=== PATIENT | male | born 1950 | race African-American/Black ===

== ENCOUNTER 2022-01-26 17:00 | Inpatient (IN) | payer MEDICARE ==
[~2022-01-26] VITALS: Ht 180.3 cm; Wt 76.7 kg
[2022-01-26] MEDS ORDERED: IOHEXOL-350 100 ML BOTTLE ONE (18:00)
[2022-01-26 18:03] LABS: BASOPHILS % 0.6 % (0.0-2.0); EOSINOPHILS % 1.7 % (0.0-5.0); HEMATOCRIT. 39.6 % (42.0-52.0); HEMOGLOBIN. 12.6 g/dL (14.0-18.0); MEAN CORPUSCULAR HEMOGLOBIN 21.5 pg (28.0-32.0); MEAN CORPUSCULAR VOLUME 67.5 fL (80.0-94.0); MEAN PLATELET VOLUME 7.8 fl (7.4-10.4); MONOCYTES % 9.8 % (2.0-8.0); NEUTROPHILS % 72.9 % (40.0-76.0); PLATELET 196 x1000/uL (130-400); RED BLOOD CELL COUNT 5.87 mill/uL (4.7-6.1); RED CELL DISTRIBUTION WIDTH 15.3 % (11.6-14.6)
[2022-01-26 18:10] LABS: CHLORIDE 104 mEq/L (98-107)
[2022-01-26 18:14] LABS: ETHANOL BLOOD < 10 mg/dL
[2022-01-26 18:26] LABS: PLATELET ESTIMATE NORMAL
[2022-01-26] MEDS ORDERED: ASPIRIN 325MG EC TABLET PO ONE (18:45)
[2022-01-26] MEDS ORDERED: VALACYCLOVIR HCL 500MG TABLET PO SCH (18:45)
[2022-01-26] MEDS ORDERED: PREDNISONE 20MG TABLET PO ONE (18:45)
[2022-01-26 19:00] LABS: CLARITY URINE CLEAR (CLEAR); COLOR URINE YELLOW (YELLOW); KETONES URINE NEGATIVE (NEGATIVE); LEUKOCYTE ESTERASE URINE NEGATIVE (NEGATIVE); NITRITE URINE NEGATIVE (NEGATIVE); OCCULT BLOOD URINE NEGATIVE (NEGATIVE); PH URINE 7.5 (4.5-8.0); PROTEIN URINE NEGATIVE (NEGATIVE); SPECIFIC GRAVITY URINE 1.021 (1.005-1.030); UROBILINOGEN URINE 0.2 E.U./dL (0.2-1.0)
[2022-01-26 19:16] LABS: *AMPHETAMINES SCREEN URINE NEGATIVE (NEGATIVE); *BARBITURATES SCREEN URINE NEGATIVE (NEGATIVE); *BENZODIAZEPINES SCREEN URINE NEGATIVE (NEGATIVE); CANNABINOID URINE SCREEN NEGATIVE (NEGATIVE); METHADONE URINE SCREEN NEGATIVE (NEGATIVE); OPIATES URINE SCREEN NEGATIVE (NEGATIVE); PHENCYCLIDINE URINE SCREEN NEGATIVE (NEGATIVE)
[2022-01-26 19:17] LABS: *COCAINE SCREEN URINE NEGATIVE (NEGATIVE)
[2022-01-27] MEDS ORDERED: TRAMADOL 50MG TABLET PO PRN (02:45)
[2022-01-27] MEDS ORDERED: NALOXONE HCL 0.4 MG/ML 1ML VIAL IV PRN (02:45)
[2022-01-27] MEDS ORDERED: DOCUSATE SODIUM 100MG CAPSULE PO PRN (03:45)
[2022-01-27] MEDS ORDERED: ONDANSETRON HCL 4MG/2ML INJ IV PRN (03:45)
[2022-01-27] MEDS: AMLODIPINE 10MG TABLET PO SCH ×2 (03:45→13:11)
[2022-01-27] MEDS ORDERED: CLONIDINE 0.1MG TABLET PO PRN (03:45)
[2022-01-27] MEDS ORDERED: ACETAMINOPHEN 325MG TABLET PO PRN (03:45)
[2022-01-27 11:00] VITALS: BP_SYST 145; BP_DIAS 77; BP_DIAS 79
[2022-01-27] MEDS: ASPIRIN 81MG EC TABLET PO SCH (13:02)
[2022-01-27] MEDS: LOSARTAN POTASSIUM 50 MG TABLET PO SCH (13:12)
[2022-01-27] MEDS: HYDROCODONE/ACETAMINOPHEN 5/325MG TABLET PO PRN ×2 (13:12→17:13)
[2022-01-27] MEDS: SODIUM CHLORIDE 0.45% 1,000 ML IV SCH (15:09)
[2022-01-27 16:00] VITALS: BP 153/77
[2022-01-27] MEDS ORDERED: GADOTERATE MEGLUMINE 5 MMOL/10 ML VIAL IV ONE (16:02)
[2022-01-27] MEDS ORDERED: LOSA50TA41 MT (18:17)
[2022-01-27] MEDS ORDERED: SIMV-43 MT (18:17)
[2022-01-27] MEDS ORDERED: AMLO2.5T45 MT (18:17)
[2022-01-27] MEDS ORDERED: MAGN400C MT (18:19)
[2022-01-27] MEDS ORDERED: PANT40TA51 MT (18:19)
[2022-01-27] MEDS ORDERED: RIBO400T MT (18:19)
[2022-01-27] MEDS ORDERED: MILK175C5 PO (18:19)
[2022-01-27] MEDS ORDERED: CHOL400D2 PO (18:19)
[2022-01-27] MEDS ORDERED: MELA3TAB40 MT (18:19)
[2022-01-27 20:00] VITALS: BP 132/70
[2022-01-27] MEDS ORDERED: ATORVASTATIN CALCIUM 20MG TABLET PO SCH (21:00)
[2022-01-27] MEDS ORDERED: ZOLPIDEM TARTRATE 5MG TABLET PO PRN (21:30)
[2022-01-28] VITALS: BP 113/65
[2022-01-28 04:00] VITALS: BP 136/84
[2022-01-28] MEDS: SODIUM CHLORIDE 0.45% 1,000 ML IV SCH (05:51)
[2022-01-28 07:41] LABS: BASOPHILS % 0.6 % (0.0-2.0); EOSINOPHILS % 2.8 % (0.0-5.0); HEMATOCRIT. 39.9 % (42.0-52.0); HEMOGLOBIN. 12.9 g/dL (14.0-18.0); LYMPHOCYTES % 27.4 % (20.0-50.0); MEAN CORPUSCULAR HEMOGLOBIN 22.1 pg (28.0-32.0); MEAN CORPUSCULAR VOLUME 68.4 fL (80.0-94.0); MEAN PLATELET VOLUME 8.6 fl (7.4-10.4); MONOCYTES % 11.1 % (2.0-8.0); NEUTROPHILS % 58.1 % (40.0-76.0); PLATELET 203 x1000/uL (130-400); RED BLOOD CELL COUNT 5.84 mill/uL (4.7-6.1); RED CELL DISTRIBUTION WIDTH 15.6 % (11.6-14.6)
[2022-01-28 07:48] LABS: CHLORIDE 106 mEq/L (98-107)
[2022-01-28 08:00] VITALS: BP 119/59
[2022-01-28 08:06] LABS: LDL CHOLESTEROL 70 mg/dL (5-100)
[2022-01-28 08:08] LABS: HDL CHOLESTEROL 46 mg/dL (40-59)
[2022-01-28] MEDS: ASPIRIN 81MG EC TABLET PO SCH (09:43)
[2022-01-28] MEDS: AMLODIPINE 10MG TABLET PO SCH (09:43)
[2022-01-28] MEDS: LOSARTAN POTASSIUM 50 MG TABLET PO SCH (09:43)
[2022-01-28 13:09] VITALS: BP 119/59
== END 2022-01-28 17:08 | disposition home or self-care (01) | DRG 74 ==
LOC: ER 17:00 → MICUSO 20:04 → 6WST 01-27 11:49
PROVIDERS: ADMIT Hospitalist; ATTEND Hospitalist
DX: G51.0 Bell's palsy (principal); M48.02 Spinal stenosis, cervical region; E78.5 Hyperlipidemia, unspecified; M25.78 Osteophyte, vertebrae; I10 Essential (primary) hypertension; Z82.49 Family history of ischemic heart disease and other diseases of the circulatory system; Z85.818 Personal history of malignant neoplasm of other sites of lip, oral cavity, and pharynx; Z92.3 Personal history of irradiation
CPT/HCPCS: 36415; 70496; 70498; 70543; 70551; 71045; 72141; 80053; 80061; 80305; 80320; 81003; 82962; 83880; 84484; 85025; 93005; 99291; A9577; J7512; Q9967; G0480

== ENCOUNTER 2022-03-05 22:43 | Inpatient (IN) | payer MEDICARE ==
[~2022-03-05] VITALS: Ht 181.8 cm; Wt 78.9 kg
[~2022-03-05 22:43] MED LIST: AMLO2.5T45 MT; CHOL400D2 PO; LOSA50TA41 MT; MAGN400C MT; MELA3TAB40 MT; MILK175C5 PO; PANT40TA51 MT; RIBO400T MT; SIMV-43 MT
[2022-03-05 23:20] LABS: CHLORIDE 104 mEq/L (98-107)
[2022-03-05 23:38] LABS: BASOPHILS % 0.8 % (0.0-2.0); EOSINOPHILS % 1.1 % (0.0-5.0); HEMATOCRIT. 40.9 % (42.0-52.0); HEMOGLOBIN. 13.2 g/dL (14.0-18.0); LYMPHOCYTES % 21.8 % (20.0-50.0); MEAN CORPUSCULAR HEMOGLOBIN 21.9 pg (28.0-32.0); MEAN CORPUSCULAR VOLUME 68.1 fL (80.0-94.0); MEAN PLATELET VOLUME 8.3 fl (7.4-10.4); MONOCYTES % 11.8 % (2.0-8.0); NEUTROPHILS % 64.5 % (40.0-76.0); PLATELET 214 x1000/uL (130-400); RED BLOOD CELL COUNT 6.01 mill/uL (4.7-6.1); RED CELL DISTRIBUTION WIDTH 15.4 % (11.6-14.6)
[2022-03-05] MEDS ORDERED: POTASSIUM CHLORIDE 20MEQ TABLET SR PO NR (23:45)
[2022-03-06 00:03] LABS: PLATELET ESTIMATE NORMAL
[2022-03-06] MEDS ORDERED: ASPIRIN 325MG EC TABLET PO NR (00:15)
[2022-03-06] MEDS ORDERED: SODIUM CHLORIDE 0.9% 500 ML IV ONE (02:00)
[2022-03-06 09:00] VITALS: BP 129/69
[2022-03-06 09:30] VITALS: BP 129/69
[2022-03-06] MEDS ORDERED: DIPHENHYDRAMINE 50MG/ML VIAL IV PRN (09:30)
[2022-03-06] MEDS ORDERED: ACETAMINOPHEN 325MG TABLET PO PRN (09:30)
[2022-03-06] MEDS ORDERED: IPRATROPIUM/ALBUTEROL 0.5-3(2.5)MG/3ML NEB HHN PRN (09:30)
[2022-03-06] MEDS ORDERED: CLONIDINE 0.1MG TABLET PO PRN (09:30)
[2022-03-06] MEDS ORDERED: ONDANSETRON HCL 4MG/2ML INJ IV PRN (09:30)
[2022-03-06 12:00] VITALS: BP 135/81
[2022-03-06] MEDS: CYCLOBENZAPRINE 10MG TABLET PO SCH ×2 (13:25→21:25)
[2022-03-06 16:00] VITALS: BP 147/87
[2022-03-06 20:00] VITALS: BP 135/80
[2022-03-06] MEDS: ALPRAZOLAM 0.25 MG TABLET PO SCH (21:25)
[2022-03-07] VITALS: BP 129/83
[2022-03-07 04:00] VITALS: BP 125/72
[2022-03-07] MEDS: CYCLOBENZAPRINE 10MG TABLET PO SCH ×3 (05:56→21:29)
[2022-03-07 06:15] LABS: BASOPHILS % 0.9 % (0.0-2.0); EOSINOPHILS % 4.8 % (0.0-5.0); HEMATOCRIT. 40.3 % (42.0-52.0); HEMOGLOBIN. 12.9 g/dL (14.0-18.0); LYMPHOCYTES % 30.8 % (20.0-50.0); MEAN CORPUSCULAR VOLUME 68.9 fL (80.0-94.0); MEAN PLATELET VOLUME 8.2 fl (7.4-10.4); MONOCYTES % 12.4 % (2.0-8.0); NEUTROPHILS % 51.1 % (40.0-76.0); PLATELET 178 x1000/uL (130-400); RED BLOOD CELL COUNT 5.85 mill/uL (4.7-6.1); RED CELL DISTRIBUTION WIDTH 15.8 % (11.6-14.6)
[2022-03-07 07:56] LABS: CHLORIDE 108 mEq/L (98-107)
[2022-03-07 08:00] VITALS: BP 123/72
[2022-03-07] MEDS: ALPRAZOLAM 0.25 MG TABLET PO SCH ×2 (08:41→17:06)
[2022-03-07] MEDS: ASPIRIN 81MG EC TABLET PO SCH (08:41)
[2022-03-07 12:00] VITALS: BP 108/76
[2022-03-07] MEDS ORDERED: NON FORMULARY PATIENT HOME MED XX SCH ×2 (12:00→16:45)
[2022-03-07 16:00] VITALS: BP 130/85
[2022-03-07] MEDS ORDERED: PANTOPRAZOLE 40MG DR TABLET PO SCH (17:00)
[2022-03-07] MEDS ORDERED: MELATONIN 3MG TABLET PO PRN (17:00)
[2022-03-07 20:00] VITALS: BP 140/98
[2022-03-07] MEDS ORDERED: ATORVASTATIN CALCIUM 10MG TABLET PO SCH (21:00)
[2022-03-08] VITALS: BP 136/68
[2022-03-08 04:00] VITALS: BP 134/87
[2022-03-08] MEDS: CYCLOBENZAPRINE 10MG TABLET PO SCH ×2 (05:08→13:40)
[2022-03-08 08:00] VITALS: BP 134/79
[2022-03-08] MEDS ORDERED: FAMOTIDINE 20MG TABLET PO SCH (09:00)
[2022-03-08] MEDS: ASPIRIN 81MG EC TABLET PO SCH (09:07)
[2022-03-08] MEDS: ALPRAZOLAM 0.25 MG TABLET PO SCH (09:07)
[2022-03-08 12:00] VITALS: BP 144/87
[2022-03-08] MEDS ORDERED: ASPI-1406 PO (14:00)
[2022-03-08 14:59] VITALS: BP 138/81
== END 2022-03-08 15:30 | disposition home health service (06) | DRG 103 ==
LOC: ER 22:43 → MICUSO 03-06 01:40 → EDBEDREQTM 03-06 01:42 → EDBEDREQ 03-06 01:42 → 7WST 03-06 09:30
PROVIDERS: ADMIT Internal Medicine; ATTEND Internal Medicine
DX: G43.909 Migraine, unspecified, not intractable, without status migrainosus (principal); G45.9 Transient cerebral ischemic attack, unspecified; E87.6 Hypokalemia; I10 Essential (primary) hypertension; R25.2 Cramp and spasm; Z85.819 Personal history of malignant neoplasm of unspecified site of lip, oral cavity, and pharynx; Z82.49 Family history of ischemic heart disease and other diseases of the circulatory system; Z79.899 Other long term (current) drug therapy
CPT/HCPCS: 36415; 70551; 71045; 72141; 80053; 83880; 84484; 85025; 93005; 93970; 99285; J2405; J7030

== ENCOUNTER 2023-01-02 11:04 | Emergency (ER) | payer MEDICARE, MEDICAID ==
[~2023-01-02] VITALS: Ht 180.3 cm; Wt 75.0 kg
[~2023-01-02 11:04] MED LIST changes: +ASPI-1406 PO
[2023-01-02 11:06] VITALS: BP 117/72
[2023-01-02] MEDS ORDERED: FLUORESCEIN SODIUM 1MG/STRIP RIGHTEYE ONE (11:45)
[2023-01-02] MEDS ORDERED: TETRACAINE 0.5% OPHTH DROPS 4ML RIGHTEYE ONE (11:45)
[2023-01-02] MEDS ORDERED: OFLO5DRO3 RIGHTEYE (12:34)
== END 2023-01-02 12:52 | disposition home or self-care (01) ==
LOC: ER 11:04
DX: H10.021 Other mucopurulent conjunctivitis, right eye (principal); I10 Essential (primary) hypertension; Z85.9 Personal history of malignant neoplasm, unspecified
CPT/HCPCS: 99283

== ENCOUNTER 2023-05-13 09:37 | Emergency (ER) | payer MEDICARE, MEDICAID, OTHER ==
[~2023-05-13] VITALS: Ht 172.7 cm; Wt 80.0 kg
[~2023-05-13 09:37] MED LIST changes: +OCUFLX RIGHTEYE
[2023-05-13 09:42] VITALS: BP 104/67; PULSE 97; RESP 18; TEMP 98.6; O2SAT 100
[2023-05-13 10:38] LABS: EOSINOPHILS % 3.6 % (0.0-5.0); HEMATOCRIT. 39.4 % (42.0-52.0); HEMOGLOBIN. 12.9 g/dL (14.0-18.0); LYMPHOCYTES % 19.6 % (20.0-50.0); MEAN CORPUSCULAR HEMOGLOBIN 22.4 pg (28.0-32.0); MEAN CORPUSCULAR HGB CONC 32.9 g/dL (31.0-37.0); MEAN CORPUSCULAR VOLUME 68.1 fL (80.0-94.0); MEAN PLATELET VOLUME 7.9 fl (7.4-10.4); NEUTROPHILS % 64.8 % (40.0-76.0); PLATELET 208 x1000/uL (130-400); RED BLOOD CELL COUNT 5.78 mill/uL (4.7-6.1); RED CELL DISTRIBUTION WIDTH 15.3 % (11.6-14.6); WHITE BLOOD COUNT 4.9 x1000/uL (4.5-11.0)
[2023-05-13 10:41] LABS: ADD RBC MORPHOLOGY YES; DIFFERENTIAL COMMENT 1
[2023-05-13 10:45] LABS: CHLORIDE 100 mEq/L (98-107); INDEX HEMOLYSI 1 (1-3); INDEX ICTERIC 1 (1-4); INDEX LIPEMIC 1 (1-3); POTASSIUM 2.9 mEq/L (3.5-5.1); SODIUM 137 mEq/L (136-145)
[2023-05-13 10:53] LABS: ALANINE AMINOTRANSFERASE 41 IU/L (13-61); ALBUMIN 3.7 g/dL (3.4-5.0); ASPARTATE AMINOTRANSFERASE 24 IU/L (15-37); BILIRUBIN TOTAL 0.8 mg/dL (0.1-1.0); CALCIUM 9.1 mg/dL (8.5-10.1); CARBON DIOXIDE 30 mEq/L (21-32); CREATININE 1.3 mg/dL (0.6-1.3); GLUCOSE 121 mg/dL (70-105); PROTEIN TOTAL 7.6 g/dL (6.0-8.3); UREA NITROGEN BLOOD 24 mg/dL (7-21)
[2023-05-13 11:47] LABS: MICROCYTOSIS 2+; PLATELET ESTIMATE NORMAL
[2023-05-13] MEDS ORDERED: POTASSIUM CHLORIDE 20MEQ TABLET SR PO ONE (13:15)
[2023-05-13] MEDS ORDERED: POTASSIUM CHLORIDE 20MEQ TABLET SR PO NR (15:30)
== END 2023-05-13 17:11 | disposition left against medical advice (07) ==
LOC: ER 10:52 → CANBEDREQ 17:10 → ER 17:11
DX: E87.6 Hypokalemia (principal); R42 Dizziness and giddiness; I10 Essential (primary) hypertension; Z85.9 Personal history of malignant neoplasm, unspecified; Z79.899 Other long term (current) drug therapy
CPT/HCPCS: 36415; 80053; 82962; 85025; 93005; 99284

== ENCOUNTER 2023-07-26 23:34 | Emergency (ER) | payer MEDICARE, MEDICAID, OTHER ==
[~2023-07-26] VITALS: Ht 180.3 cm; Wt 78.0 kg
[2023-07-27 00:27] VITALS: O2SAT 98
[2023-07-27] MEDS ORDERED: KETOROLAC 30MG/ML VIAL IM ONE (01:00)
[2023-07-27] MEDS ORDERED: IBUP-2029 MT (01:23)
[2023-07-27] MEDS ORDERED: BENZ100C86 MT (01:23)
[2023-07-27] MEDS ORDERED: AMOX-494 MT (01:23)
[2023-07-27 01:51] VITALS: BP 122/81
[2023-07-27 01:53] VITALS: PULSE 90; RESP 18; TEMP 99
== END 2023-07-27 01:54 | disposition home or self-care (01) ==
LOC: ER 23:52
DX: J06.9 Acute upper respiratory infection, unspecified (principal); K04.7 Periapical abscess without sinus; I10 Essential (primary) hypertension; Z90.89 Acquired absence of other organs; Z98.890 Other specified postprocedural states; Z85.9 Personal history of malignant neoplasm, unspecified; Z79.899 Other long term (current) drug therapy
CPT/HCPCS: 99283; 71045; 96372; J1885

== ENCOUNTER → 2025-07-15 | Outpatient (CLI) | payer MEDICARE, MEDICAID ==
[~2025-07-15] MED LIST changes: -AMLO2.5T45 MT; +AMLO2.5T45 PO; +ASPI-1406 MT; -ASPI-1406 PO; +CHLO25TA2 MT; +GUAI600T26 MT; -MAGN400C MT; +MAGN400C PO; -OCUFLX RIGHTEYE; -RIBO400T MT; +TRAM50TA3 PO; +[UNRECOGNIZED DRUG - CODE]
== END | disposition home or self-care (01) ==
LOC: RAD 13:21
PROVIDERS: ATTEND Neurological Surgery
DX: M47.812 Spondylosis without myelopathy or radiculopathy, cervical region (principal); M43.22 Fusion of spine, cervical region; M25.78 Osteophyte, vertebrae; M54.2 Cervicalgia; Z98.1 Arthrodesis status
CPT/HCPCS: 72052

== ENCOUNTER 2025-07-17 08:19 | Emergency (ER) | payer MEDICARE, MEDICAID ==
[~2025-07-17] VITALS: Ht 182.9 cm; Wt 75.0 kg
[2025-07-17 08:30] VITALS: O2SAT 97
[2025-07-17] MEDS: KETOROLAC 30MG/ML VIAL IM ONE (09:39)
[2025-07-17 10:18] LABS: BASOPHILS % 0.8 % (0.0-2.0); EOSINOPHILS % 0.8 % (0.0-5.0); HEMATOCRIT. 42.7 % (42.0-52.0); HEMOGLOBIN. 13.6 g/dL (14.0-18.0); LYMPHOCYTES % 14.5 % (20.0-50.0); MEAN PLATELET VOLUME 8.0 fl (7.4-10.4); MONOCYTES % 5.8 % (2.0-8.0); NEUTROPHILS % 78.1 % (40.0-76.0); PLATELET 251 x1000/uL (130-400); RED BLOOD CELL COUNT 6.15 mill/uL (4.7-6.1); RED CELL DISTRIBUTION WIDTH 15.8 % (11.6-14.6)
[2025-07-17 10:19] LABS: ADD RBC MORPHOLOGY YES
[2025-07-17 10:39] LABS: CREATININE 1.1 mg/dL (0.6-1.3); TROPONIN I HIGH SENSITIVITY < 4 ng/L (3.0-53); UREA NITROGEN BLOOD 15 mg/dL (9-23)
[2025-07-17 10:41] LABS: ASPARTATE AMINOTRANSFERASE 31 IU/L (<34); BILIRUBIN TOTAL 0.7 mg/dL (0.1-1.0); PROTEIN TOTAL 7.4 g/dL (6.0-8.3)
[2025-07-17] MEDS ORDERED: IBUP-2028 MT (11:02)
[2025-07-17] MEDS ORDERED: LIDO-53 TP (11:02)
[2025-07-17 11:19] VITALS: BP 131/78; PULSE 97; RESP 18; TEMP 36.7; O2SAT 97
[2025-07-17 12:17] LABS: PLATELET ESTIMATE NORMAL
== END 2025-07-17 11:22 | disposition home or self-care (01) ==
LOC: ER 08:19
DX: R51.9 Headache, unspecified (principal); R20.2 Paresthesia of skin; I10 Essential (primary) hypertension; Z90.89 Acquired absence of other organs; Z79.899 Other long term (current) drug therapy
CPT/HCPCS: 99284; 80053; 85025; 84484; 36415; 93005; 96372; J1885